=== PATIENT | female | born 1960 | race Caucasian/White ===

== ENCOUNTER → 2025-08-02 10:20 | Outpatient (CLI) | payer MEDICARE, SELFPAY ==
[2025-08-02 11:05] LABS: Cholesterol 277 mg/dL (140-199); HDL Cholesterol 91 mg/dL (40-60); Triglycerides 101 mg/dL (35-150)
[2025-08-02 11:09] LABS: Hemoglobin A1C% w Est Avg Glu 5.4 % (4.0-6.0)
== END ==
PROVIDERS: PCP Family Medicine; Referring Provider Family Medicine; Visit Provider Family Medicine
DX: Z13.1 Encounter for screening for diabetes mellitus (principal); Z13.220 Encounter for screening for lipoid disorders
CPT/HCPCS: 36415; 80061; 83036